=== PATIENT | female | born 1975 | race Caucasian/White ===

== ENCOUNTER 2020-03-10 11:38 | Emergency (ER) | payer OTHER, SELFPAY ==
[2020-03-10 11:47] VITALS: BP 127/96; PULSE 101; RESP 18; TEMP 37.3; O2SAT 100
[2020-03-10] MEDS: TETANUS,DIPHTHERIA,AC PERTUSSIS ADULT (0.5 ML) BOOSTRIX IM (12:37)
--- NOTE | 2020-03-10 12:37 | ED.WOUNDLAC ---
HPI - Wound/Laceration General Chief Complaint: Wound/Laceration Stated Complaint: L LEG /?INSECT BITE Time Seen by Provider: 03/10/20 12:11 Source: patient Mode of arrival: ambulatory Limitations: no limitations History of Present Illness HPI narrative: This is a 44-year-old female that presents the emergency department for possible insect bite. Reports she was outside yesterday and felt a possible bite on the back of her left leg. Reports yesterday she was having some intermittent fever and chills. Reports she noted some redness around the bite. Unsure of her last tetanus vaccine. Denies cold symptoms, abdominal pain, dysuria, edema, nausea or vomiting. Related Data Home Medications Medication Instructions Recorded Confirmed alprazolam 0.5 mg PO 03/10/20 buspirone 30 mg PO 03/10/20 montelukast 10 mg PO 03/10/20 vortioxetine [Trintellix] 10 mg PO 03/10/20 Allergies Allergy/AdvReac Type Severity Reaction Status Date / Time No Known Allergies Allergy Verified 03/10/20 11:51 Review of Systems Review of Systems: Narrative: CONSTITUTIONAL: Reports fever RESPIRATORY: Denies cough GASTROINTESTINAL: Denies abdominal pain, nausea, vomiting GENITOURINARY: Denies dysuria or hematuria. SKIN: Reports erythema All systems reviewed & are unremarkable except as noted in HPI and below PMFSH Past Medical History Medical History (Updated 03/10/20 @ 12:42 by Lilian Samuels PA-C) History of anxiety History of depression Surgical History Surgical History (Updated 03/10/20 @ 12:40 by Lilian Samuels PA-C) History of section Social History Social History Gender identity (if verbalized by the patient): Female Exam Narrative: Exam Narrative: GENERAL: Well-appearing, well-nourished, and in no acute distress. HEAD: Normocephalic, atraumatic. EYES: EOMI. EXTREMITIES: Normal range of motion. No edema. Left posterior knee with small (3cm) area of erythema SKIN: Warm, dry, no rash. NEURO: No focal deficits. Alert and oriented x3. PSYCH: Normal mood and affect Course Vital Signs Vital signs: Vital Signs Temperature 99.2 F 03/10/20 11:47 Pulse Rate 101 H 03/10/20 11:47 Respiratory Rate 18 03/10/20 11:47 Blood Pressure 127/96 H 03/10/20 11:47 Pulse Oximetry 100 03/10/20 11:47 Temperature 99.2 F 03/10/20 11:47 Pulse Rate 101 H 03/10/20 11:47 Respiratory Rate 18 03/10/20 11:47 Blood Pressure 127/96 H 03/10/20 11:47 Pulse Oximetry 100 03/10/20 11:47 MDM - Wound/Laceration MDM Narrative Medical decision making narrative: Patient presents the emergency department for possible bug bite yesterday. Reports she was having fevers with this. Mild cellulitis to the area. She is afebrile and on appearing. Patient will be started on oral antibiotics. She was updated on tetanus. She is to follow-up with her primary care doctor. She was given warnings to return to the ER Critical Care Time Critical Care Time Critical Care Time: No Discharge Plan Discharge Clinical Impression: Cellulitis Qualifiers: Site of cellulitis: extremity Site of cellulitis of extremity: lower extremity Laterality: left Qualified Code(s): L03.116 - Cellulitis of left lower limb Patient Disposition: Home, Self-Care Condition: Stable Instructions: Antibiotic Form, Cellulitis (ED) Additional Instructions: Return the emergency department if you experience fever, increasing redness and swelling around your wound, or any other symptoms that are concerning to you Clean the area with mild soap and water. Take oral antibiotics as prescribed Follow-up with your primary care doctor Prescriptions: New cephalexin 500 mg capsule 500 mg PO Q6H 7 Days Qty: 28 RF: 0 No Action alprazolam 0.5 mg tablet 0.5 mg PO RF: 0 buspirone 30 mg tablet 30 mg PO RF: 0 montelukast 10 mg tablet 10 mg PO RF: 0 Trintellix 10 mg tablet 10 mg PO RF: 0 Follow-up/Refer
[2020-03-10 12:54] VITALS: BP 145/85; PULSE 71; RESP 16; O2SAT 98
== END 2020-03-10 12:57 | disposition home or self-care (01) ==
PROVIDERS: Emergency Provider Emergency Medicine
DX: L03.116 Cellulitis of left lower limb (principal); Z23 Encounter for immunization; F41.9 Anxiety disorder, unspecified; F32.9 Major depressive disorder, single episode, unspecified
CPT/HCPCS: 90471; 90715; 99283

== ENCOUNTER 2020-03-12 11:48 | Emergency (ER) | payer OTHER, SELFPAY ==
[2020-03-12 11:52] VITALS: BP 143/72; PULSE 87; RESP 15; TEMP 36.8; O2SAT 100
--- NOTE | 2020-03-12 12:08 | PC.NURSE ---
HALEY Haddad at bedside for exam. Wound being cultured.
--- NOTE | 2020-03-12 12:17 | ED.GENADULT ---
HPI - General Adult General Chief complaint: Wound/Laceration Stated complaint: wound to left leg Time Seen by Provider: 03/12/20 11:49 Source: patient and old records reviewed Mode of arrival: ambulatory Limitations: no limitations History of Present Illness HPI narrative: Patient is a 44-year-old female who presents with roughly 5 days duration of wound to the posterior left leg was seen 3 days ago in the emergency department started on Keflex and patient is unsure as to the etiology of the wound but believes it could be a spider bite patient on arrival to emergency department in no distress noting that there is a now small black area in the central wound with surrounding erythema is an aching pain notes subjective fever with chills in the last day despite the antibiotics and the wound continues to increase in size patient denies vomiting or other complaints and presents in no distress and is also been taking Benadryl and Tylenol Related Data Home Medications Medication Instructions Recorded Confirmed alprazolam 0.5 mg PO 03/10/20 buspirone 30 mg PO 03/10/20 montelukast 10 mg PO 03/10/20 vortioxetine [Trintellix] 10 mg PO 03/10/20 Allergies Allergy/AdvReac Type Severity Reaction Status Date / Time No Known Allergies Allergy Verified 03/12/20 11:55 Review of Systems Review of Systems: All systems reviewed & are unremarkable except as noted in HPI and below PMFSH Past Medical History Medical History History of anxiety History of depression Surgical History Surgical History History of section Social History Social History Gender identity (if verbalized by the patient): Female Exam Narrative: Exam Narrative: GENERAL: Well-appearing, well-nourished, and in no acute distress. HEAD: Normocephalic, atraumatic. EYES: PERRLA and EOMI. ENT: Nares clear, no rhinorrhea or epistaxis. Mucous membranes moist. CHEST: Clear to auscultation. No respiratory distress. No wheezes rales or rhonchi HEART: Regular rate and rhythm. No murmur heard. Normal peripheral pulses. ABDOMEN: Soft, nontender, nondistended EXTREMITIES: Normal range of motion. No edema. SKIN: Warm, dry, no rash. Patient with 2 puncture-like wounds centrally behind the left knee laterally with surrounding erythema one small pustule and then a small wound with a black scab over. Surrounding erythematous area measures roughly 4 cm NEURO: No focal deficits. Alert and oriented x3. Neurovascularly intact PSYCH: Normal mood and affect. Course Course Emergency Course: Patient in the room at this time aware of case findings treatment plan and diagnosis agreeing to follow-up as directed or to return if symptoms worsen or concerns Vital Signs Vital signs: Vital Signs Temperature 98.2 F 03/12/20 11:52 Pulse Rate 87 03/12/20 11:52 Respiratory Rate 15 03/12/20 11:52 Blood Pressure 143/72 H 03/12/20 11:52 Pulse Oximetry 100 03/12/20 11:52 Temperature 98.2 F 03/12/20 11:52 Pulse Rate 78 03/12/20 13:09 Respiratory Rate 18 03/12/20 13:09 Blood Pressure 129/90 03/12/20 13:09 Pulse Oximetry 98 03/12/20 13:09 Medical Decision Making [facility] Narrative Medical decision making narrative: Patient in the room at this time was given medications in the emergency department has been advised to [place] the wound to watch for progression patient will be given plastic surgery follow-up has been advised that upon returning home she should contact her primary care to set up for plastic surgery consult to ensure that if she has a spider bite such as brown recluse she will need dermatological or supervisory training specialist follow-up. Patient is afebrile nontoxic-appearing no distress no high risk changes in the blood work. Vital Signs Vital Signs: Vital Signs Temperature 98.2 F
--- NOTE | 2020-03-12 12:30 | PC.NURSE ---
IV initiated and labs collected. NS initated. When giving decadon, pt suddenly began c/o tingling all over and becoming increasingly anxious, pulling mask off. Requesting to take her own ativan. Dr. Bowie contacted and order received for medication. Piper, RN, remains at bedside with patient and is helping patient to calm down.
--- NOTE | 2020-03-12 12:35 | PC.NURSE ---
Pt appears much calmer at present, states is feeling better.
[2020-03-12 12:36] LABS: Basophils Percent Auto 0.4 % (0.2-1.2); Eosinophils Absolute Auto 0.1 K/mm3 (0-0.3); Hematocrit 40.5 % (37.0-47.0); Hemoglobin 13.7 g/dL (12.0-15.0); Immature Granulocyte Absolute 0.01 K/mm3 (0.00-0.031); Immature Granulocyte Percent A 0.2 % (0-0.5); Lymphocytes Percent Auto 34.8 % (18.3-44.2); Mean Corpuscular HGB Conc 33.8 g/dl (32-36); Mean Corpuscular Hemoglobin 31.6 pg (26-34); Mean Corpuscular Volume 93.5 fl (80-100); Mean Platelet Volume 11.4 fl (7.4-10.4); Monocytes Absolute Auto 0.5 K/mm3 (0.1-0.6); Monocytes Percent Auto 10.2 % (2.6-8.5); Neutrophils Absolute Auto 2.4 K/mm3 (1.3-6.7); Neutrophils Percent Auto 52.4 % (45.5-73.1); Platelet Count Result 183 k/mm3 (150-375); Red Blood Count 4.33 M/mm3 (4.2-5.4); Red Cell Distribution Width 12.4 % (11.5-14.5); White Blood Count 4.6 K/mm3 (4.5-10.0)
[2020-03-12] MEDS: FAMOTIDINE 20 MG/2 ML VIAL IV PUSH (12:37)
[2020-03-12] MEDS: LORAZEPAM INJ 2 MG/ML VIAL 0.5 MG IV PUSH (12:38)
[2020-03-12] MEDS: SODIUM CHLORIDE 0.9% IV 1,000 ML 999 ML IV CONT (12:38)
[2020-03-12] MEDS: IBUPROFEN IV 800 MG/200 ML 800 MG/200 ML BAG 400 MG IVPB (12:38)
[2020-03-12 12:53] LABS: Blood Urea Nitrogen 12 mg/dL (7-17); CRP 0.7 mg/dL (<1.0); Calcium 8.8 mg/dL (8.4-10.2); Carbon Dioxide 27 mmol/L (22-30); Chloride 101 mmol/L (98-107); Estimated CRCL calculation 108 ml/min; Estimated Glomerular Filt Rate > 60; Glucose 133 mg/dL (65-105); Potassium 3.8 mmol/L (3.4-5.0); Sodium 135 mmol/L (137-145)
[2020-03-12 13:09] VITALS: BP 129/90; PULSE 78; RESP 18; O2SAT 98
[2020-03-12 14:40] VITALS: BP 145/69; PULSE 83; RESP 18; O2SAT 100
== END 2020-03-12 14:44 | disposition home or self-care (01) ==
PROVIDERS: Emergency Medicine Emergency Medical Services; Emergency Provider Emergency Medicine
DX: L03.116 Cellulitis of left lower limb (principal)
CPT/HCPCS: 36415; 80048; 85025; 86140; 87070; 87075; 87205; 96365; 96375; 99284; J1100; J1741; J2060; J7030